=== PATIENT | female | born 1940 | race Caucasian/White ===

== ENCOUNTER → 2019-12-30 | Outpatient (CLI) | payer MEDICARE | END | disposition home or self-care (01) | LOC: LAB 15:39 → LAB SHORT 15:39 | DX: N89.8 Other specified noninflammatory disorders of vagina (principal) | CPT/HCPCS: 87070; 87205 ==

== ENCOUNTER → 2020-02-08 | Outpatient (CLI) | payer MEDICARE | END | disposition home or self-care (01) | LOC: LAB SHORT 17:22 → LAB 17:22 | DX: N89.8 Other specified noninflammatory disorders of vagina (principal) | CPT/HCPCS: 87070; 87205 ==

== ENCOUNTER 2020-12-30 01:55 | Day surgery (SDC) | payer MEDICARE ==
[~2020-12-30 01:55] MED LIST: ASCO500 PO; CENTRUM SILVER1 EAC2 PO; EUTHYROX75 MCG PO; FEROSUL325 M1 PO; LUTEIN6 MG; SIMV40 PO; ZEAXANTHIN100 GM
== END 2020-12-30 11:53 | disposition home or self-care (01) ==
LOC: ATC 01:55
DX: C91.10 Chronic lymphocytic leukemia of B-cell type not having achieved remission (principal); E03.9 Hypothyroidism, unspecified; E78.5 Hyperlipidemia, unspecified
CPT/HCPCS: 36430; 86850; 86860; 86870; 86880; 86900; 86901; 86922; J7050; P9016

== ENCOUNTER 2021-01-18 03:12 | Day surgery (SDC) | payer MEDICARE ==
--- NOTE | 2021-01-18 11:26 | NUR ---
PT AGREED THIS STUDENT CAN HELP CARE FOR HER
== END 2021-01-18 11:26 | disposition home or self-care (01) ==
LOC: ATC 03:12
DX: C91.10 Chronic lymphocytic leukemia of B-cell type not having achieved remission (principal); E03.9 Hypothyroidism, unspecified; E78.5 Hyperlipidemia, unspecified; D64.9 Anemia, unspecified; F17.200 Nicotine dependence, unspecified, uncomplicated
CPT/HCPCS: 36415; 36430; 86850; 86900; 86901; 86922; J7050; P9016

== ENCOUNTER 2021-02-14 08:59 | Inpatient (IN) | payer MEDICARE ==
[~2021-02-14] VITALS: Ht 154.9 cm; Wt 51.0 kg
[2021-02-14 09:29] LABS: Source, Urine Catheter
[2021-02-14 09:33] LABS: Bilirubin, Urine Neg (Neg); Blood, Urine 4+ (Neg); Glucose Qualitative, Urine Neg (Neg); Ketones, Urine 1+ (Neg); Leukocyte Esterase, Urine Neg (Neg); Nitrite, Urine Neg (Neg); Protein, Urine 3+ (Neg); Urobilinogen, Urine NORM (Normal)
[2021-02-14 09:50] LABS: Amorphous Mod (0-Heavy); Appearance, Urine Hazy (Clear); Bacteria Not Seen /hpf; Color, Urine Yellow (P-Yellow); Mucus Light (0-Heavy); Squamous Epithelial Cells Few /hpf (Few); White Blood Cells, Urine Not Seen /hpf (0-5)
[2021-02-14 09:58] LABS: Alanine Aminotransfer (ALT/SGP 35 U/L (12-78); Albumin, Blood 2.8 g/dL (3.4-5.0); Albumin/Globulin Ratio 0.7 (0.8-1.8); Alk Phos 194 U/L (50-136); Anion Gap 9 mmol/L (6-16); Aspartate Aminotrans (AST/SGOT 29 U/L (12-37); Bilirubin, Total 0.6 mg/dL (0.1-1.0); Blood Urea Nitrogen 22 mg/dL (8-24); Bun/Creatinine Ratio 29.1 (12.0-20.0); CO2, Blood 23 mmol/L (21-32); Calcium, Blood 8.9 mg/dL (8.5-10.1); Chloride, Blood 102 mmol/L (98-108); Creatinine, Blood 0.76 mg/dL (0.40-1.00); Glomerular Filtration Rate >60 (60-); Glucose, Blood 183 mg/dL (70-99); Potassium, Blood 3.7 mmol/L (3.5-5.5); Sodium, Blood 134 mmol/L (136-145); Total Protein, Blood 6.8 g/dL (6.4-8.2)
[2021-02-14 10:02] LABS: EOSINOPHILS ABSOLUTE AUTO 0.01 K/mm3 (0.00-0.68); EOSINOPHILS PERCENT AUTO 0 % (0-6); Hematocrit 18.9 % (33.0-51.0); Mean Corpuscular HGB 28.2 pg (26.0-34.0); Mean Corpuscular HGB Conc 26.5 g/dL (31.5-36.5); Mean Corpuscular Volume 107 fL (80-100); Mean Platelet Volume 11.1 fL (9.1-12.4); NRBC ABSOLUTE 0.04 K/mm3 (0.00-0.02); RDW Coefficient Variation 27.9 % (11.7-14.2); RDW Standard Deviation 51.2 fL (35.1-46.3); Red Blood Cell Count 1.77 M/mm3 (3.80-5.20)
[2021-02-14 10:03] LABS: BASOPHILS ABSOLUTE AUTO 0.01 K/mm3 (0.00-0.23); BASOPHILS PERCENT AUTO 0 % (0-2); IMMATURE GRAN ABSOLUTE AUTO 0.01 K/mm3 (0.00-0.10); IMMATURE GRAN PERCENT AUTO 0 % (0-1); LYMPHOCYTES ABSOLUTE AUTO 193.13 K/mm3 (0.84-5.20); LYMPHOCYTES PERCENT AUTO 97 % (21-46); MONOCYTES ABSOLUTE AUTO 4.91 K/mm3 (0.16-1.47); MONOCYTES PERCENT AUTO 3 % (4-13); NEUTROPHILS ABSOLUTE AUTO 0.86 K/mm3 (1.96-9.15); NEUTROPHILS PERCENT AUTO 0 % (41-73); Platelet Count 47 K/mm3 (150-400)
[2021-02-14 10:05] LABS: White Blood Cell Count 198.93 K/mm3 (4.00-11.30)
--- NOTE | 2021-02-14 12:39 | NUR ---
ED Palliative Care Consult Spoke with Dr Baltazar and discussed case. Pt here for transfusion. Pt has CLL and may benefit from discussion regarding goals of care. Pt resting on gurny upon arrival. Pt with her eyes closed for most of the visit and does not engage in conversation. Pt's spouse Abhay and Pt's son Sahil at bedside. Discussed plan of care and engaged in therapeutic discussion regarding the option for hospice. Educated on hospice philosophy and discussed considering goals, values, comfort, and quality. Answered question and offered therapeutic listening. Spouse reports Pt's health has significantly declined since August and has required routine transfusions. Son Sahil reports Pt and spouse lives in [place] for part of the year and here for part of the year. Continued therapeutic listening. Spouse and son would like to see how Pt responds to the transfusion and will consider options. Palliative Care will remain available.
--- NOTE | 2021-02-14 16:30 | NUR ---
Patient arrived via gurney and was afour person slide transfer. Her temp was 102.8. Placed her on bed benson after hooking up to monitor. She was awake enough to answer questions in a soft quiet voice and appropriate. She was pulling hwer clothe and attends off as she stated she was very hot. Placed on bed benson and got about 25 ml urine and talked her into temp reyes for better temp monitoring, she stated yes. VSS, See EMR. MAEW but weak. She was placed on 2L O2 via NC and shortly increased to 4L O2 via NC and sats >905.
--- NOTE | 2021-02-14 18:00 | NUR ---
We placed ice bags in arm pit and groin and temp currently 101.8. at bedside and CN gave update report to him. She is repositioning self for comfort. temp reyes patent and draining.
[2021-02-14 20:15] LABS: Source, Urine Catheter
[2021-02-14 20:18] LABS: Appearance, Urine Clear (Clear); Bilirubin, Urine Neg (Neg); Blood, Urine 4+ (Neg); Color, Urine Amber (P-Yellow); Glucose Qualitative, Urine Neg (Neg); Ketones, Urine Neg (Neg); Leukocyte Esterase, Urine Neg (Neg); Nitrite, Urine Neg (Neg); Protein, Urine 3+ (Neg); Urobilinogen, Urine NORM (Normal)
[2021-02-14 20:28] LABS: Amorphous Light (0-Heavy); Bacteria Mod /hpf; Red Blood Cells, Urine 0-2 /hpf (0-2); Squamous Epithelial Cells Not Seen /hpf (Few); White Blood Cells, Urine 0-2 /hpf (0-5)
--- NOTE | 2021-02-14 20:30 | NUR ---
ASSUMPTION OF CARE RECEIVED REPORT AT 192 FROM ALE SWEET, ASSUMED CARE OF PATIENT. PATIENT IN BED, EYES CLOSED, EASILY AWAKENS. STATED SHE FEELS TIRED AND COLD. TEMP 102.7, PO TYLENOL GIVEN WITH A SIP OF WATER. PATIENT TOLERATED PO INTAKE WELL. PATIENT IS A/O, TACHYCARDIC, PATENT QUILES, DENIES OTHER NEEDS AT THIS TIME. REVIEWED ORDERS, WILL TREAT PRESCRIBED.
--- NOTE | 2021-02-14 21:21 | NUR ---
TEMPERATURE NOTIFIED DR. BAUMAN OF PATIENT'S CURRENT TEMPERATURE AFTER TYLENOL WAS GIVEN. RECEIVED ORDERS FOR IBUPROFEN. WILL TREAT AND MONITOR.
[2021-02-14 21:47] LABS: SARS-Cov-2 (COVID-19) PCR, MMC NEGATIVE (NEGATIVE)
--- NOTE | 2021-02-14 23:55 | NUR ---
ASSUMED CARE OF PATIENT FROM MICKI HOUSTON. WENT IN TO WAKE PATIENT FOR MIDNIGHT MEDS, PT VERY DROWSY, COOPERATIVE, WEAK. ABLE TO SWALLOW MEDICATION WITH ENCOURAGEMENT TO FIND STRAW. PT PULLING ON CARDIAC LINES, REMINDED THAT THOSE NEED TO STAY, "OK". PT BACK TO SLEEP. QUILES DRAINING DARK SAM THICK CLOUDY RETURN.
[2021-02-15 03:31] LABS: EOSINOPHILS PERCENT AUTO 0 % (0-6); Hematocrit 22.9 % (33.0-51.0); Mean Corpuscular HGB 29.8 pg (26.0-34.0); Mean Corpuscular HGB Conc 30.6 g/dL (31.5-36.5); Mean Platelet Volume 10.8 fL (9.1-12.4); NRBC ABSOLUTE 0.03 K/mm3 (0.00-0.02); RDW Coefficient Variation 20.1 % (11.7-14.2); RDW Standard Deviation 44.1 fL (35.1-46.3); Red Blood Cell Count 2.35 M/mm3 (3.80-5.20)
[2021-02-15 03:36] LABS: BASOPHILS ABSOLUTE AUTO 0.01 K/mm3 (0.00-0.23); BASOPHILS PERCENT AUTO 0 % (0-2); IMMATURE GRAN PERCENT AUTO 0 % (0-1); LYMPHOCYTES ABSOLUTE AUTO 162.91 K/mm3 (0.84-5.20); LYMPHOCYTES PERCENT AUTO 98 % (21-46); MONOCYTES ABSOLUTE AUTO 1.79 K/mm3 (0.16-1.47); MONOCYTES PERCENT AUTO 1 % (4-13); Mean Corpuscular Volume 97 fL (80-100); NEUTROPHILS ABSOLUTE AUTO 1.01 K/mm3 (1.96-9.15); NEUTROPHILS PERCENT AUTO 1 % (41-73)
[2021-02-15 03:37] LABS: White Blood Cell Count 165.72 K/mm3 (4.00-11.30)
[2021-02-15 03:38] LABS: Platelet Count 31 K/mm3 (150-400)
[2021-02-15 03:43] LABS: International Normalized Ratio 1.4; Prothrombin Time Results 14.8 Sec (9.7-11.5)
[2021-02-15 03:52] LABS: Alanine Aminotransfer (ALT/SGP 33 U/L (12-78); Albumin, Blood 2.3 g/dL (3.4-5.0); Albumin/Globulin Ratio 0.6 (0.8-1.8); Alk Phos 137 U/L (50-136); Anion Gap 5 mmol/L (6-16); Aspartate Aminotrans (AST/SGOT 36 U/L (12-37); Bilirubin, Total 1.4 mg/dL (0.1-1.0); Blood Urea Nitrogen 30 mg/dL (8-24); Bun/Creatinine Ratio 32.9 (12.0-20.0); CO2, Blood 27 mmol/L (21-32); Calcium, Blood 8.6 mg/dL (8.5-10.1); Chloride, Blood 105 mmol/L (98-108); Creatinine, Blood 0.91 mg/dL (0.40-1.00); Glomerular Filtration Rate >60 (60-); Glucose, Blood 118 mg/dL (70-99); Magnesium, Blood 2.1 mg/dL (1.6-2.4); Potassium, Blood 3.7 mmol/L (3.5-5.5); Sodium, Blood 137 mmol/L (136-145); Total Protein, Blood 6.3 g/dL (6.4-8.2)
--- NOTE | 2021-02-15 04:04 | NUR ---
PT CONTINUES TO SLEEP, LAB RESULTS REPORTED TO . PT APPROPRIATE AND PLEASANT WHEN AWAKENED FOR CARE.
--- NOTE | 2021-02-15 06:48 | NUR ---
UPON WAKING PT THIS AM, SHE IS MORE ALERT, ORIENTED, CHEERFUL AND ENGAGING. SHE IS JOKING AND STATED THAT SHE FEELS MUCH BETTER. HER TEMPERATURE IS NOW NORMAL, HER BLOOD PRESSURE IS STABLIZING, FLUIDS CONTINUE @ 75ML/HR QUILES TO GRAVITY DRAINAGE. DENIES ANY COMPLAINTS AND STATED SHE IS LOOKING FORWARD TO EATING SOME "REAL" FOOD.
[2021-02-15 17:21] LABS: Hematocrit 26.2 % (33.0-51.0); Hemoglobin 8.2 g/dL (11.5-16.0); Mean Corpuscular HGB 29.6 pg (26.0-34.0); Mean Corpuscular HGB Conc 31.3 g/dL (31.5-36.5); Mean Corpuscular Volume 95 fL (80-100); Mean Platelet Volume 11.1 fL (9.1-12.4); NRBC ABSOLUTE 0.04 K/mm3 (0.00-0.02); RDW Coefficient Variation 18.3 % (11.7-14.2); RDW Standard Deviation 44.5 fL (35.1-46.3); Red Blood Cell Count 2.77 M/mm3 (3.80-5.20)
[2021-02-15 17:27] LABS: Platelet Count 29 K/mm3 (150-400); White Blood Cell Count 146.92 K/mm3 (4.00-11.30)
--- NOTE | 2021-02-15 18:00 | NUR ---
SHIFT SUMMARY PT A&Ox4; CALM AND COOPERATIVE WITH CARE. PT RESTING IN BED DURING SHIFT, PT REPOSITIONED SELF IN BED. PT DENIES PAIN, CHEST PAIN, NASUEA AND DIZZINESS T/O SHIFT. TMAX 101.8, CURRENTLY 100.4; MEDICATED PER EMAR, WILL CONTINUE TO MONITOR. PT RECEIVED 1 IRRATED PRBC, PT AND FAMILY EDCUATED ON HIGH RISK TRANSFUSION AND PT AGREEABLE TO RECEIVE UNIT; DR JENKINS NOTIFIED AND SIGNED FORM AND SENT TO BLOOD BANK, TOLERATED UNIT WELL. OTHER VSS. NO OTHER ACUTE CHANGES NOTED DURING SHIFT. WILL CONTINUE TO MONITOR UNITL REPORT GIVEN TO ONCOMING RN.
--- NOTE | 2021-02-16 02:15 | NUR ---
MID SHIFT PT AXO. THIS RN ROTATING MEDICATIONS TO CONTROLE FEVER. T MAX 101.8 CURRENTLY BUT DOWN TO 99.8 NOW. PT NOTED TO HAVE COARSE/WET LUNG SOUNDS. RECEIVING NS POST 1UPRBC INFUSION. DR JEFFERSON CALLED. NOTED THAT PT'S HAD SOFT BP'S AND IS SMALL. DECISION TO HOLD FLUIDS FOR NOW AND GIVE 20 IV LASIX. PT VOIDING LARGE AMOUNT OF URINE INTO QUILES. URINE REMAINS DELMA GOLD COLOR. PT STATES WET COUGH REMAINS BUT LUNG SOUNDS DO PRESENT WITH LESSENED COARSENESS AND CRACKLES.
[2021-02-16 03:46] LABS: EOSINOPHILS PERCENT AUTO 0 % (0-6); Hematocrit 22.7 % (33.0-51.0); Hemoglobin 7.2 g/dL (11.5-16.0); Mean Corpuscular HGB 29.9 pg (26.0-34.0); Mean Corpuscular HGB Conc 31.7 g/dL (31.5-36.5); Mean Corpuscular Volume 94 fL (80-100); Mean Platelet Volume 11.4 fL (9.1-12.4); RDW Coefficient Variation 18.7 % (11.7-14.2); RDW Standard Deviation 45.3 fL (35.1-46.3); Red Blood Cell Count 2.41 M/mm3 (3.80-5.20)
[2021-02-16 03:51] LABS: BASOPHILS ABSOLUTE AUTO 0.01 K/mm3 (0.00-0.23); BASOPHILS PERCENT AUTO 0 % (0-2); IMMATURE GRAN PERCENT AUTO 0 % (0-1); LYMPHOCYTES ABSOLUTE AUTO 116.93 K/mm3 (0.84-5.20); LYMPHOCYTES PERCENT AUTO 99 % (21-46); MONOCYTES ABSOLUTE AUTO 0.71 K/mm3 (0.16-1.47); MONOCYTES PERCENT AUTO 1 % (4-13); NEUTROPHILS ABSOLUTE AUTO 0.57 K/mm3 (1.96-9.15); NEUTROPHILS PERCENT AUTO 1 % (41-73)
[2021-02-16 03:55] LABS: White Blood Cell Count 118.22 K/mm3 (4.00-11.30)
[2021-02-16 03:56] LABS: Platelet Count 24 K/mm3 (150-400)
[2021-02-16 04:09] LABS: Alanine Aminotransfer (ALT/SGP 686 U/L (12-78); Albumin, Blood 1.8 g/dL (3.4-5.0); Albumin/Globulin Ratio 0.4 (0.8-1.8); Alk Phos 332 U/L (50-136); Anion Gap 7 mmol/L (6-16); Bilirubin, Total 3.1 mg/dL (0.1-1.0); Blood Urea Nitrogen 31 mg/dL (8-24); Bun/Creatinine Ratio 39.8 (12.0-20.0); CO2, Blood 25 mmol/L (21-32); Chloride, Blood 102 mmol/L (98-108); Creatinine, Blood 0.78 mg/dL (0.40-1.00); Glomerular Filtration Rate >60 (60-); Glucose, Blood 114 mg/dL (70-99); Magnesium, Blood 2.1 mg/dL (1.6-2.4); Phosphorus, Blood 2.8 mg/dL (2.5-4.9); Potassium, Blood 3.2 mmol/L (3.5-5.5); Sodium, Blood 134 mmol/L (136-145); Total Protein, Blood 5.8 g/dL (6.4-8.2)
[2021-02-16 04:16] LABS: Aspartate Aminotrans (AST/SGOT 1101 U/L (12-37); C-REACTIVE PROTEIN, EXT RANGE >19.000 mg/dL (0.000-0.300)
--- NOTE | 2021-02-16 05:39 | NUR ---
SHIFT SUMMARY NO ACUTE CHANGES THIS SHIFT. PT AXO. FEBRILE BUT W/ TYLENOL/IBUPROFEN, HAVE BEEN ABLE TO LOWER TEMPS <100. T MAX 101.8. PT ASYMPTOMATIC TO THIS. LUNG SOUNDS LESS WET/COARSE POST LASIX WITH LARGE OUTPUT VIA QUILES. REMAINS SR/ST. ON RA. PT REMAINS IN NEUTROPENIC PRECAUTIONS. BED ALARM ON. PT USING CALL LIGHT APPROPRIATELY.
[2021-02-16 10:06] LABS: Hematocrit 31.7 % (33.0-51.0); Hemoglobin 10.3 g/dL (11.5-16.0)
--- NOTE | 2021-02-16 10:29 | NUR ---
Assumed care of pt at 0700. Medical floor status w/o telemetry. Pt A&O x 4. Answers questions, follows commands, verbalizes needs. Pleasant and cooperative with care. Pt on 3 LPM NC. SpO2 90% or greater. Sibley catheter in place, draining clear, yellow urine. Bed in lowest position. Call light in reach. Pt denies need at this time.
--- NOTE | 2021-02-16 15:41 | NUR ---
Pt transferred to room 227. Telephone report given to Bee SWEET. Pt visited with spouse and neice this afternoon. At time of transfer, pt on 4 LPM NC. SpO2 90% or greater. Pt tachycardic and febrile. Tylenol given prior to transfer to maintain downward trend of temp. Sibley catheter in place draining kyle urine. Chart, medi cations, and belonging transferred with patient.
--- NOTE | 2021-02-16 16:15 | NUR ---
PT TRANSFERRED FROM ICU 1530, A&OX4, 4LNC/FEBRILE 100.1/PULSE 117, MICHEL PO, DENIES PAIN, DEEP BREATHING EDU & ENC, SITTING UP IN BED.
[2021-02-17 04:39] LABS: Hematocrit 24.5 % (33.0-51.0); Hemoglobin 8.1 g/dL (11.5-16.0); Mean Corpuscular HGB 30.6 pg (26.0-34.0); Mean Corpuscular HGB Conc 33.1 g/dL (31.5-36.5); Mean Corpuscular Volume 93 fL (80-100); Mean Platelet Volume 12.1 fL (9.1-12.4); RDW Coefficient Variation 18.4 % (11.7-14.2); RDW Standard Deviation 45.8 fL (35.1-46.3); Red Blood Cell Count 2.65 M/mm3 (3.80-5.20)
--- NOTE | 2021-02-17 04:42 | NUR ---
SHIFT SUMMARY MAX ORAL TEMPERATURE THIS SHIFT OF 100.9. FEVER RESOLVED WITH TYLENOL PER ORDERS. PT STILL WITH NONPRODUCTIVE COUGH. ON 7L O2 VIA OXYMIZER PLACED BY RT. LUNGS COARSE IN THE BASES AND PT DOES GET SOB WITH EXERTION. 1 ASSIST WHEN OOB. QUILES WITH DARK SAM URINE. PT HAS BEEN PLEASANTLY CONFUSED THIS SHIFT. BED ALARM ON FOR SAFETY. CALL LIGHT WITHIN REACH.
[2021-02-17 04:44] LABS: Platelet Count 21 K/mm3 (150-400); White Blood Cell Count 106.76 K/mm3 (4.00-11.30)
[2021-02-17 05:19] LABS: Alanine Aminotransfer (ALT/SGP 521 U/L (12-78); Albumin, Blood 1.7 g/dL (3.4-5.0); Albumin/Globulin Ratio 0.4 (0.8-1.8); Alk Phos 410 U/L (50-136); Anion Gap 8 mmol/L (6-16); Aspartate Aminotrans (AST/SGOT 343 U/L (12-37); Bilirubin, Total 3.2 mg/dL (0.1-1.0); Blood Urea Nitrogen 28 mg/dL (8-24); Bun/Creatinine Ratio 47.6 (12.0-20.0); CO2, Blood 25 mmol/L (21-32); Calcium, Blood 8.5 mg/dL (8.5-10.1); Chloride, Blood 100 mmol/L (98-108); Creatinine, Blood 0.59 mg/dL (0.40-1.00); Globulin, Blood 4.7 g/dL (2.2-4.0); Glomerular Filtration Rate >60 (60-); Glucose, Blood 120 mg/dL (70-99); Potassium, Blood 3.4 mmol/L (3.5-5.5); Sodium, Blood 133 mmol/L (136-145); Total Protein, Blood 6.4 g/dL (6.4-8.2)
[2021-02-17 06:07] LABS: BASOPHILS PERCENT MAN 0 % (0-2); C-REACTIVE PROTEIN, EXT RANGE >19.000 mg/dL (0.000-0.300); EOSINOPHILS PERCENT MAN 0 % (0-6); LYMPHOCYTES ABSOLUTE MAN 105.69 K/mm3 (0.84-5.20); LYMPHOCYTES PERCENT MAN 99 % (21-46); MONOCYTES ABSOLUTE MAN 1.06 K/mm3 (0.16-1.47); MONOCYTES PERCENT MAN 1 % (4-13); TOTAL CELLS COUNTED 100
[2021-02-17 06:09] LABS: SEG NEUTROPHILS PERCENT MAN 0 % (41-73)
[2021-02-17 07:09] LABS: IMMUNOGLOBULIN A, QN, SERUM 7 mg/dL (64-422); IMMUNOGLOBULIN G, QN, SERUM 201 mg/dL (586-1602); IMMUNOGLOBULIN M, QN, SERUM 19 mg/dL (26-217)
--- NOTE | 2021-02-17 08:26 | NUR ---
DECLINE RESP STATUS PT NOTED BY HATCH BOSS TO HAVE RESP RATE OF 32. O2 SATS AT 86% ON 7L OXYMIZER. ENCOURAGED TO DEEP BREATH AND SATS IMPROVED BRIEFLY TO 89-90%. CALLED RT. RT INCREASED O2 TO 15L OXYMIZER TO KEEPS SATS 89-90%. DR JONI LEE SPOKE WITH PATIENT AND PLAN IS TO START CANCER MED TO SEE IF IT HELPS STABILIZE PATIENT. DR JONI LEE SPOKE WITH PATIENT'S FAMILY ON THE PHONE. FAMILY TO COME IN TO SEE PATIENT THIS AM.
--- NOTE | 2021-02-17 09:05 | NUR ---
Spoke with Pt's primary RN Ramin and discussed case. Pt had a change in condition overnight and is now requiring 15 L O2 via oximyzer. Dr Fisher was in to see Pt and has called family with plan. Pt resting in bed upon arrival. Pt appears lethargic, moderately dyspneic, with a weak non productive cough. Pt is A&OX2. When asked the name of facility she is in she states [facility]", when aske reason for hospital stay Pt states "to receive cancer treatment", Pt not able to remember initial reason for coming to the ED, Pt also unable to verbalize current year. Pt re-orientated to place, reason for stay, and current year. Ended visit to allow Pt to rest. Call into Dr Fisher for continuity of care. Await return phone call. Palliative Care will F/U when family arrives.
--- NOTE | 2021-02-17 09:49 | NUR ---
F/U visit this AM. Pt resting in bed with spouse Abhay, and niece Linh (MPOA). Engaged in therapeutic discussion regarding plan of care. Family reports understanding of plan to begin cancer treatment but preparing for the potential of treatment not being beneficial. Continued therapeutic listening and answered questions. Family express appreciation of visit. Spoke with Dr Espinoza and discussed case. Placed order for Pt to transfer to ICU per V/O from Dr Espinoza. Spoke with Primary RN Ramin and discussed case. Palliative Care will remain available.
--- NOTE | 2021-02-17 10:28 | NUR ---
TRANSFER TO ICU PATIENT WAS SEEN BY PALLIATIVE CARE RN WHO SPOKE WITH PATIENT AND FAMILY. PALLIATIVE CARE RN CONTACTED DR JENKINS TO SEE IF HE WOULD LIKE TO TRANSFER PATIENT TO HIGHER LEVEL OF CARE DUE TO DECLINING RESP STATUS. ORDER PLACED TO TRANSFER PATIENT TO ICU. TRANSPORTED PATIENT IN BED TO ICU AND GAVE BEDSIDE REPORT ON DECLINING RESP STATUS, CURRENT NEED FOR O2 SUPP, RECENT VITALS OF 103.0 TEMP, RR 32, HR TACHY AT 140S, AND SPO2 89-90% ON 15L OXYMIZER. PATIENT DOES NOT HAVE PATENT IV. DUE FOR ABX THIS AM AND RITUXIMAB ABOUT 1200. BREAKFAST AND AM PO MEDS HELD DUE TO SWALLOW CONCERN SECOND TO WEAKNESS AND DECREASED LOC.
--- NOTE | 2021-02-17 12:52 | NUR ---
Assumed care of pt upon arrival to ICU 16 at 1010 from surgical floor. Bedside report received from Ramin SWEET. Pt arrived with 15 LPM oxymizer. SpO2 88%. Call placed to Dr Espinoza to discuss respiratory status. Orders received for IV lasix and BiPAP. Pt given PO tylenol and ibuprofen due to fever of 104.4. Tolerated pills well without signs of aspiration. Pt placed on BiPAP 10/5 and 30%. SpO2 90% or greater. Tachycardic, rate 140s, narrow QRS. Pt's spouse and neice at bedside.
--- NOTE | 2021-02-17 14:15 | NUR ---
Call placed to Dr Espinoza to discuss pt's hypotension. Orders given for 500 mL NS bolus. Chemo nurse, Nandini, notified. Chemo rate titrated down by chemo nurse.
--- NOTE | 2021-02-17 19:45 | NUR ---
ASSESSMENT/ASSUMED CARE PT SITTING UP IN BED FINISHING DINNER. TEMP 99.5, MED WITH TYLENOL. LUNGS CLEAR BUT DECREASED IN THE BASES ON 10 LITERS VIA OXMIZER. RESP EVEN AND NONLABORED. DENIES SOB. OCC NONPRODUCTIVE COUGH NOTED. HEART RATE IRREGULAR IN THE 100'S. BP STABLE ON 2 MCQ/MIN LEVOPHED. SKIN COOL. MULTIPLE BRUISES NOTED TO EXT. IV PICC LINE TO RIGHT UPPER ARM WITH NS AT 125 ML/HR AND LEVOPHED. QUILES CATH PATENT AND DRAINING DARK YELLOW/SAM URINE. PT MOVING AND TURNING SELF IN BED.
--- NOTE | 2021-02-17 19:57 | NUR ---
SUMMARY Pt on 2 mcg/min levophed through PICC line as BP did not stay stable on completion of 1 L fluid bolus. BP stable at this time. SR per monitor. Pt afebrile. Pt taken off BiPAP at 1800 and placed on 5 LPM oxymizer. SpO2 90% or greater. Respirations even and unlabored. Pt eating dinner at this time. Bed in lowest position. Call light in reach. Report given to Kae SWEET.
--- NOTE | 2021-02-17 20:57 | NUR ---
TEMP PT MED WITH IBUPROFEN FOR TEMP 99.9.
[2021-02-18 03:42] LABS: EOSINOPHILS PERCENT AUTO 0 % (0-6); Hematocrit 21.7 % (33.0-51.0); Hemoglobin 6.9 g/dL (11.5-16.0); Mean Corpuscular HGB 30.1 pg (26.0-34.0); Mean Corpuscular HGB Conc 31.8 g/dL (31.5-36.5); Mean Corpuscular Volume 95 fL (80-100); Mean Platelet Volume 11.8 fL (9.1-12.4); RDW Coefficient Variation 19.3 % (11.7-14.2); RDW Standard Deviation 49.4 fL (35.1-46.3); Red Blood Cell Count 2.29 M/mm3 (3.80-5.20)
[2021-02-18 03:46] LABS: BASOPHILS ABSOLUTE AUTO 0.04 K/mm3 (0.00-0.23); BASOPHILS PERCENT AUTO 0 % (0-2); IMMATURE GRAN PERCENT AUTO 0 % (0-1); LYMPHOCYTES ABSOLUTE AUTO 90.29 K/mm3 (0.84-5.20); LYMPHOCYTES PERCENT AUTO 99 % (21-46); MONOCYTES ABSOLUTE AUTO 0.84 K/mm3 (0.16-1.47); MONOCYTES PERCENT AUTO 1 % (4-13); NEUTROPHILS ABSOLUTE AUTO 0.27 K/mm3 (1.96-9.15); NEUTROPHILS PERCENT AUTO 0 % (41-73); Platelet Count 20 K/mm3 (150-400); White Blood Cell Count 91.44 K/mm3 (4.00-11.30)
[2021-02-18 04:01] LABS: Alanine Aminotransfer (ALT/SGP 334 U/L (12-78); Albumin, Blood 1.5 g/dL (3.4-5.0); Albumin/Globulin Ratio 0.3 (0.8-1.8); Alk Phos 315 U/L (50-136); Anion Gap 7 mmol/L (6-16); Aspartate Aminotrans (AST/SGOT 139 U/L (12-37); Bilirubin, Total 2.4 mg/dL (0.1-1.0); Blood Urea Nitrogen 38 mg/dL (8-24); Bun/Creatinine Ratio 62.2 (12.0-20.0); CO2, Blood 24 mmol/L (21-32); Calcium, Blood 7.7 mg/dL (8.5-10.1); Chloride, Blood 105 mmol/L (98-108); Creatinine, Blood 0.61 mg/dL (0.40-1.00); Globulin, Blood 4.3 g/dL (2.2-4.0); Glomerular Filtration Rate >60 (60-); Glucose, Blood 234 mg/dL (70-99); Lactate Dehydrogenase (Ld),Bld 276 U/L (100-240); Potassium, Blood 3.9 mmol/L (3.5-5.5); Sodium, Blood 136 mmol/L (136-145); Total Protein, Blood 5.8 g/dL (6.4-8.2); Uric Acid, Blood 8.8 mg/dL (2.6-6.0)
--- NOTE | 2021-02-18 05:55 | NUR ---
SHIFT SUMMARY PT RESTING QUIETLY AT THIS TIME. MED WITH TYLENOL AND IBUPROFEN DURING THE NIGHT FOR FEVER WITH GOOD RESULTS. TEMP AT THIS TIME 98.6. PT REFUSED BIPAP STATED,"I DON'T LIKE THAT THING". O2 TITRATED DOWN FROM 10 LITERS VIA OXMIZER TO 6 LITERS OXMIZER. PT WITH NONPRODUCTIVE COUGH. DENIES SOB. HEART RATE DOWN TO 80'S WHEN SLEEPING BUT BACK UP TO 100'S WHEN AWAKE. LEVOPHED TITRATED UP TO 8 MCQ/MIN TO KEEP MAP GREATER THAN 65. PT TURNING AND MOVING SELF IN BED. EGG CRATE APPLIED FOR COMFORT. PICC LINE TO RIGHT UPPER ARM WITH NS AT 125 ML/HR AND LEVOPHED INFUSING. PT STATES,"I GREW UP ON A FARM AND WOULD NOT DO THIS TO ANIMAL WHY DOES MY FAMILY THINK I WANT THIS DONE TO ME. THEY NEED TO RESPECT MY WISHES AND LET ME BE DONE". WILL HAVE PALLIATIVE CARE TALK WITH PT AND FAMILY REGARDING PT WISHES. REPORT TO ON COMING NURSE
--- NOTE | 2021-02-18 06:48 | NUR ---
PT STATES,"I PRAY EACH NIGHT FOR MY FAMILY AND THAT I DON'T MAKE IT THROUGH THE NIGHT. I WANT MY WISHES DONE NOT WHAT MY FAMILY THINKS IT SHOULD BE. I'M TIRED AND DON'T WANT TO DO THIS ANYMORE". PT TALKED TO SHASHI GUERRA AND IS PROGRESSING TO COMFORT CARE WHEN HER FAMILY AND THE DOCOTOR COME IN TODAY.
--- NOTE | 2021-02-18 08:36 | NUR ---
Assumed care of pt at 0700. Bedside report received from Kae SWEET. Pt A&O x 4. Answers questions. Follows commands. Verbalizes needs. Pleasant and cooperative with care. Pt on 6 LPM oxymizer. SpO2 90% or greater. Lungs have coarse crackles in bilateral bases but otherwise clear. Levophed at 8 mcg/min. NS at 125 mL/hr. ST per monitor. BP stable. Sibley catheter draining clear, kyle urine. Bed in lowest positon. Call light in reach. Pt denies need at this time.
--- NOTE | 2021-02-18 09:39 | NUR ---
Spoke with Primary RN Argelia and discussed case. NOC shift reports Pt was reporting that she did not want to continue with treatment and would prefer to focus on comfort and quality of life. Pt currently requiring pressors. Pt resting in bed upon arrival. Pt's spouse Abhay and Pt's niece Linh are at bedside. Pt is more alert today and states "I want to go home". Pt confirms her statements to NOC shift nurse and states she does not want to continue treating her CLL. Discussed hospice as an option and educated on hospice philosophy. Dr Fisher arrives and discusses improvements and recommendations. Therapeutic listening offered and questions answered by Dr Fisher. Pt and family decide to give it through the weekend before making any final decision regarding hospice. Remained in Pt's room after Dr Fisher leaves for continued therapeutic listening. Pt and family express appreciation of visit. Palliative Care will remain available.
[2021-02-18 10:42] LABS: Magnesium, Blood 2.2 mg/dL (1.6-2.4); Phosphorus, Blood 2.6 mg/dL (2.5-4.9)
--- NOTE | 2021-02-18 13:15 | NUR ---
Pt febrile and states "I feel like I'm burning up". Call placed to Dr Espinoza. Provider states fever is likely due to CLL and is ordering dose of tylenol to be given now. No need to stop transfusion. Pt requests ice packs. Ice packs provided. Pt requests "Can I please be put in a bed of ice". Pt provided with cooling blanket. She states satisfaction with this.
--- NOTE | 2021-02-18 18:07 | NUR ---
SUMMARY Pt's family has departed for the evening. Since family departing, pt is now sad and upset that she is following through with treatment. Reminded that earlier she was agreeable with full treatment throughout weekend and pt verbalizes that this is still the plan. Pt on 9 LPM oxymizer. SpO2 90%. Plan to put pt on BiPAP, however she is currently nauseous. Zofran given. Will continue to closely reassess. ST per monitor, rate 115-125. levophed off. BP stable. Good urine output from reyes. Temp 99.0 at this time. Pt has cooling blanket in place, per personal preference with temperature adjusted as pt desires. Will continue to closely monitor until care handoff and bedside report with oncoming RN.
--- NOTE | 2021-02-18 18:45 | NUR ---
This RN entered room for 1800 meds and pt had panicked expression on face. This RN asked pt if she was okay and she shook her head to indicate "No". This RN asked if the pt's main concern was her breathing, and she nodded head "Yes". Pt placed on BiPAP. No longer nauseous. Lungs crackled t/o. Call placed to Dr Parker to update. Orders given for lasix IV. After pt on BiPAP, this RN asked if pt was feeling better, she nodded her head to indicate "yes".
--- NOTE | 2021-02-18 19:40 | NUR ---
ASSESSMENT/ASSUMED CARE PT AWAKE, QUIET. FOLLOWING INSTRUCTIONS. LETHARGIC. STATES,"I'M JUST REALLY TIRED TONIGHT". LUNGS CLEAR WITH CRACKLES AND DECREASED IN THE BASES. PT ON BIPAP 05/30 85%. RESP EVEN AND NONLABORED. NO COUGHING NOTED AT THIS TIME.PT REPORTS IMPROVED BREATHING WITH BIPAP ON. HEART RATE TACHY 100-120'S SINUS. BP STABLE AT THIS TIME OFF LEVOPHED. SKIN COOL AND DRY. PICC LINE TO RIGHT UPPER ARM DRSG INTACT. NS AT 10 ML/HR. QUILES CATH PATENT DRAINING YELLOW/SAM URINE. PT REPOSITIONING SELF IN BED. BACK TO SLEEP QUICKLY WHEN UNDISTURBED.
--- NOTE | 2021-02-18 21:50 | NUR ---
TEMP PT AWAKE. BIPAP REMOVE AND PT PLACED ON 9 LITERS O2 VIA OXMIZER. NONPRODUCTIVE MOIST COUGH NOTED. TEMP UP TO 99.1, MED WITH TYLENOL AND IBUPROFEN. BLANKET REMOVED AND PT REPOSITIONED. INSTRUCTED PT IN SELF SUCTIONING. PT UNABLE TO COUGH UP SPUTUM.
[2021-02-19 04:28] LABS: BASOPHILS ABSOLUTE AUTO 0.06 K/mm3 (0.00-0.23); BASOPHILS PERCENT AUTO 0 % (0-2); EOSINOPHILS PERCENT AUTO 0 % (0-6); Hematocrit 19.2 % (33.0-51.0); Hemoglobin 6.4 g/dL (11.5-16.0); Mean Corpuscular HGB 30.3 pg (26.0-34.0); Mean Corpuscular HGB Conc 33.3 g/dL (31.5-36.5); Mean Corpuscular Volume 91 fL (80-100); Mean Platelet Volume 11.7 fL (9.1-12.4); RDW Coefficient Variation 18.2 % (11.7-14.2); RDW Standard Deviation 51.8 fL (35.1-46.3); Red Blood Cell Count 2.11 M/mm3 (3.80-5.20); White Blood Cell Count 37.91 K/mm3 (4.00-11.30)
[2021-02-19 04:37] LABS: IMMATURE GRAN ABSOLUTE AUTO 0.01 K/mm3 (0.00-0.10); IMMATURE GRAN PERCENT AUTO 0 % (0-1); LYMPHOCYTES ABSOLUTE AUTO 37.24 K/mm3 (0.84-5.20); LYMPHOCYTES PERCENT AUTO 98 % (21-46); MONOCYTES ABSOLUTE AUTO 0.52 K/mm3 (0.16-1.47); MONOCYTES PERCENT AUTO 1 % (4-13); NEUTROPHILS ABSOLUTE AUTO 0.08 K/mm3 (1.96-9.15); NEUTROPHILS PERCENT AUTO 0 % (41-73); Platelet Count 6 K/mm3 (150-400)
[2021-02-19 04:53] LABS: Alanine Aminotransfer (ALT/SGP 213 U/L (12-78); Albumin, Blood 2.1 g/dL (3.4-5.0); Albumin/Globulin Ratio 0.6 (0.8-1.8); Alk Phos 243 U/L (50-136); Anion Gap 6 mmol/L (6-16); Aspartate Aminotrans (AST/SGOT 76 U/L (12-37); Bilirubin, Total 2.5 mg/dL (0.1-1.0); Blood Urea Nitrogen 34 mg/dL (8-24); Bun/Creatinine Ratio 57.3 (12.0-20.0); CO2, Blood 27 mmol/L (21-32); Calcium, Blood 7.5 mg/dL (8.5-10.1); Chloride, Blood 104 mmol/L (98-108); Creatinine, Blood 0.59 mg/dL (0.40-1.00); Globulin, Blood 3.5 g/dL (2.2-4.0); Glomerular Filtration Rate >60 (60-); Glucose, Blood 113 mg/dL (70-99); Magnesium, Blood 2.2 mg/dL (1.6-2.4); Phosphorus, Blood 3.1 mg/dL (2.5-4.9); Potassium, Blood 3.6 mmol/L (3.5-5.5); Sodium, Blood 137 mmol/L (136-145); Total Protein, Blood 5.6 g/dL (6.4-8.2)
--- NOTE | 2021-02-19 05:20 | NUR ---
SHIFT SUMMARY CALL TO DR CALVIN REGARDING PLT 6 AND H&H 6.4/19.2. HE REQUESTED I NOTIFY DR LEE. CALL TO DR LEE ANSWERING SERVICE AT 0510. AWAITING RESPONSE. TEMP UP TO 99.3 MED WITH TYLENOL 650MG. PT WTH BIPAP ON 05/30 AT 50%. PT WITH INCREASED WEAKNESS FROM YESTERDAY. USING THE BIPAP THROUGHOUT THE NIGHT STATES,"I JUST DON'T FEEL LIKE I'M GETTING ENOUGH AIR WITHOUT THE MASK". PT WITH NONPRODUCTIVE COUGH MED WITH TESSLON PEARLS ONCE DURING THE NIGHT. HEART CONT TO BE TACHY 100-120'S. BP STABLE OFF LEVOPHED. PT RESTING QUIETLY AT THIS TIME WITH BIPAP ON. REPORT TO ON COMING NURSE.
--- NOTE | 2021-02-19 05:25 | NUR ---
CALL TO SECOND CALL TO DR LEE ANSWERING SERVICE.
--- NOTE | 2021-02-19 05:50 | NUR ---
TRANSFUSION CALL RECEIVED FROM DR LEE, NOTIFIED PLT CRITICAL AT 6 AND H&H 6.4/19.2. RECEIVED ORDER FOR PLT AND PRBC.
--- NOTE | 2021-02-19 07:27 | NUR ---
Assumed care for this patient. She is resting in bed with eyes closed and Bipap on. Per report Dr Fisher has been notified and signed off on the unit of blood that is ordered now. Blood slip was sent to the blood bank.
--- NOTE | 2021-02-19 08:21 | NUR ---
dR LEE IS AT THE BEDSIDE NOW AND CONFIRMED THAT WE WILL INFUSE TWO TOTAL UNITS OF BLOOD TODAY. OF NOW THE PTS VSS AND HER LUNGS REMAIN CLEAR IN THE UPPER LOBES WITH FINE CRACKLES IN THE BASES WHICH IS UNCHANGED FROM BEFORE THE START OF THE BLOOD. DR LEE IS UPDATING THE FAMILY NOW VIA PHONE.
--- NOTE | 2021-02-19 10:02 | NUR ---
Pt continues to rest in bed visiting with family at the bedside. Blood continues to infuse with no adverse reaction observed and VSS. Per palliative care, Pt wishes to continue with today's treatment as ordered and then if no changes tomorrow transition to comfort care at that time. The pt is able to make her needs known and verbalizes her wishes.
--- NOTE | 2021-02-19 10:41 | NUR ---
Pt resting in bed upon arrival. Engaged in therapeutic listening as Pt expresses her wishes to stop everything. Pt states "I want to " and "I want to stop the transfusions, I want to stop everything". Continued therapeutic listening and discussed orginal plan of waiting until Saturday before making a decision. Pt states "Maybe the treatment takes and maybe it does'nt, but I don't want to wait to find out". Continued therapeutic listening. Family arrives and this RN stepped out to allow conversation to take place. Called and spoke with Dr Fisher and relayed Pt's wishes. Stepped back into Pt's room with family reporting Pt has agreed to wait until tomorrow before making final decision. It appears Pt maybe influenced by family's wishes as evidenced by Pt expressing her wishes when she is by herself and waxing and waining when family is present. Pt and family express appreciation of visit. Spoke with Primary RN Cesar and discussed case. Palliative Care will remain available.
--- NOTE | 2021-02-19 14:21 | NUR ---
Some of the pt's blood vital heart rates were charted incorrectly but then corrected as reflected in the chart. the charger tester is aware.
--- NOTE | 2021-02-19 15:43 | NUR ---
Pt has been assigned a room in PCu 9. The Pt and the family have been notified and are agreeable. Awaiting to give report to receiving RN.
--- NOTE | 2021-02-19 16:18 | NUR ---
Shift Summary Pt has been a/o x 4 with no c/o pain but is fatigued and weak. She has been agreeable to her care and met with palliative care this morning. Pt received 2 units of RBCs with no adverse reaction. She did have a low grade temp which the dr was aware of and was given PO antipyretics for and they were effective. Family was at the bedside for a few hours and they seem to have a therapuetic relationship. PICC line flushes well. Sibley is patent. This nurse assisted the pt with a bed bath and linen change. Dr changed her status to PCU and report has been called. Pt remains on the Bipap as she reports that she is more comfortable with her breathing with it on. Family is aware of her transfer to PCU.
--- NOTE | 2021-02-19 16:18 | NUR ---
Report given to FIRST OFFICER AND FLIGHT INSTRUCTORMICKI Munguia.
[2021-02-19 17:46] LABS: Hematocrit 25.1 % (33.0-51.0); Hemoglobin 8.7 g/dL (11.5-16.0); Mean Corpuscular HGB 29.7 pg (26.0-34.0); Mean Corpuscular HGB Conc 34.7 g/dL (31.5-36.5); Mean Platelet Volume 10.7 fL (9.1-12.4); RDW Coefficient Variation 16.4 % (11.7-14.2); RDW Standard Deviation 45.9 fL (35.1-46.3); Red Blood Cell Count 2.93 M/mm3 (3.80-5.20); White Blood Cell Count 30.71 K/mm3 (4.00-11.30)
[2021-02-19 17:51] LABS: Mean Corpuscular Volume 86 fL (80-100)
[2021-02-19 17:54] LABS: Platelet Count 22 K/mm3 (150-400)
[2021-02-19 18:07] LABS: Vancomycin, Random 6.5 ug/mL
--- NOTE | 2021-02-19 18:19 | NUR ---
TRANSFER NOTE & SHIFT SUMMARY PT ARRIVED TO UNIT @ APPROX 1630, PT WAS SLID TO PCU BED. ARRIVED ON BiPAP, PT PERFERS BiPAP OR ELSE SHE STATES SHE CANNOT BREATHE. O2 SATS DROP INTO THE 70'S W/O BiPAP. FINE CRACKLES @ BASES. A&O, ABLE TO MAKE NEEDS KNOWN. PATENT DENIES ANY DISTRESS AT THIS TIME. QUILES PATENT AND DRAINING CLEAR YELLOW URINE. cL PLATELET COUNT OF 22, THIS IS INCREASED FROM 6 AFTER 2 UNITS OF PRBC ADMINISTERED IN ICU. PT IS POTENTIALLY BEING PLACED ON COMFORT CARE TOMORROW DEPENDING ON WHETHER OR NOT SHE PROGRESSES. FAMILY IS CURRENTLY AT BEDSIDE. PT AND FAMILY STATE TO NURSE THAT THEY DO NOT WANT PT TO RECIEVE COVID VACCINE OR THORANCENTESIS THAT WAS DISCUSSED PREVIOUSLY. PICC IN [facility] [[email or web address]] WORKS WELL. CALL LIGHT IS WITHIN REACH.
--- NOTE | 2021-02-19 22:28 | NUR ---
CALLED DR BAUMAN REGARDING PT VERY PAINFUL. ORDERS OF FENT 25-50 MCGS Q4HRS.
[2021-02-20 03:47] LABS: BASOPHILS ABSOLUTE AUTO 0.04 K/mm3 (0.00-0.23); BASOPHILS PERCENT AUTO 0 % (0-2); EOSINOPHILS PERCENT AUTO 0 % (0-6); Hematocrit 26.7 % (33.0-51.0); Hemoglobin 9.4 g/dL (11.5-16.0); Mean Corpuscular HGB 30.1 pg (26.0-34.0); Mean Corpuscular HGB Conc 35.2 g/dL (31.5-36.5); Mean Corpuscular Volume 86 fL (80-100); Mean Platelet Volume 9.5 fL (9.1-12.4); RDW Coefficient Variation 17.3 % (11.7-14.2); RDW Standard Deviation 47.2 fL (35.1-46.3); Red Blood Cell Count 3.12 M/mm3 (3.80-5.20); White Blood Cell Count 28.04 K/mm3 (4.00-11.30)
[2021-02-20 03:53] LABS: IMMATURE GRAN PERCENT AUTO 0 % (0-1); LYMPHOCYTES ABSOLUTE AUTO 27.63 K/mm3 (0.84-5.20); LYMPHOCYTES PERCENT AUTO 99 % (21-46); MONOCYTES ABSOLUTE AUTO 0.17 K/mm3 (0.16-1.47); MONOCYTES PERCENT AUTO 1 % (4-13); NEUTROPHILS PERCENT AUTO 1 % (41-73); Platelet Count 16 K/mm3 (150-400)
[2021-02-20 04:13] LABS: Alanine Aminotransfer (ALT/SGP 232 U/L (12-78); Albumin, Blood 1.8 g/dL (3.4-5.0); Albumin/Globulin Ratio 0.5 (0.8-1.8); Alk Phos 367 U/L (50-136); Anion Gap 7 mmol/L (6-16); Aspartate Aminotrans (AST/SGOT 140 U/L (12-37); Bilirubin, Total 2.8 mg/dL (0.1-1.0); Blood Urea Nitrogen 30 mg/dL (8-24); Bun/Creatinine Ratio 59.9 (12.0-20.0); CO2, Blood 25 mmol/L (21-32); Calcium, Blood 7.7 mg/dL (8.5-10.1); Chloride, Blood 102 mmol/L (98-108); Globulin, Blood 3.9 g/dL (2.2-4.0); Glomerular Filtration Rate >60 (60-); Glucose, Blood 126 mg/dL (70-99); Potassium, Blood 3.4 mmol/L (3.5-5.5); Sodium, Blood 134 mmol/L (136-145); Total Protein, Blood 5.7 g/dL (6.4-8.2)
--- NOTE | 2021-02-20 04:54 | NUR ---
CALLED DR. MORA REGARDING PT AND FAMILY WANTING TO MOVE FORWARD WITH COMFORT CARE. ORDER TO INCREASE PAIN MEDICATION FENT PRN Q4 IF NEEDED. WILL PASS ON TO DAY SHIFT
--- NOTE | 2021-02-20 04:57 | NUR ---
SHIFT SUMMARY PT IS ALERT AND ORIENTED. PT IS ABLE TO CALL FOR HELP AND CALL LIGHT IS WITHIN REACH. AROUND 0230 PT HAD A HEART RATE INCREASE OF ABOVE 200. PT DENIED CHEST PAIN OR TIGHTNESS. PT WAS ON BIPAP WITH 60%FIO2 AND SATS OF 90%. BP WAS STABLE. WE WERE ABLE TO STABALIZE HEART RATE. PT ASKED FOR FAMILY TO COME VISIT HER. SHE HAD NURSE VERIFY THAT SHE WAS DNR AND THAT WE UNDERSTOOD HER WISHES. SHASHI GUERRA CAME TO NURSES STATION TO STATE THAT FAMLY AND PT CAME TO THE AGREEMENT THAT SHE WOULD LIKE TO BE COMFORT CARE. FAMILY IN ROOM AT THIS TIME.
--- NOTE | 2021-02-20 06:04 | NUR ---
PT ON 15L OXYMIZER MAINTAINING BETWEEN 88-90% O2
--- NOTE | 2021-02-20 06:34 | NUR ---
PT IS NO LONGER TOLERATING TO BE ON OXYMIZER DUE TO AIR HUNGER. PT IS NOW ON BIPAP.
--- NOTE | 2021-02-20 10:16 | NUR ---
[facility] COMFORT CARE VISIT AND CASE CONFERENCE with Pt/family, RN, charger operator, and GAVIN. t/c received that pt/family have been requesting comfort care since yesterday gabriella and t/o noc. Pt is requiring bipap support and not tolerating or liking the bipap but air hunger too great to d/c without support. Report called to and comfort care orders received and entered. Met with pt and family to review options and clarify comfort care request. They would like IV/PO rx & tx d/c'd, except for medications that will contribute to Titi's comfort. Pt confirms this is her wish. Pt with bipap on and showing nonverbal indicators of anxiety and discomfort currently. We discussed medications for comfort and SE. Pt and family instructed our goal for today would be to manage pt's s/s for comfort. They ask that we work on d/c plan for home today. I am concerned that we will not be able to support pt's resp status adequately during a medical transport to home. She will have limited O2 delivery at home compared to here. This was discussed with family. Pt and family would like us to try. They are receptive to any of three hospice agencies available, requesting which ever one can arrange services and equipment first. Pt lives in [place]. Comfort care orders discussed with RN, food tester. Pt/family request for d/c home communicated with and Marina ALONSO. They are rounding soon and will discuss further. hospice consultant ordered comfort cart.
--- NOTE | 2021-02-20 17:42 | NUR ---
PT TRANSFERRED TO COMFORT CARE AND FROM BIPAP TO OXYMISER 15L AT 1112; PT GIVEN PAIN RX SEVERAL TIMES PER MAR; FAMILY MEMBERS AT BEDSIDE; PT DENIES ADDITIONAL CONCERNS AT THIS TIME; PT GIVEN ANTIEMETIC 1X PER MAR; PT REPOSITIONED Q2H; FAMILY MEMBERS DENY ADDITIONAL CONCERNS AT THIS TIME
--- NOTE | 2021-02-21 06:02 | NUR ---
SHIFT SUMMARY PT COMFORT CARE STATUS, SLEEPING MAJORITY OF SHIFT. A&O X4. PT DENYING PAIN/DISCOMFORT UNTIL C/O HEADACHE THIS AM. PT MEDICATED W/ PRN PO TYLENOL PER EMAR/PT REQUEST X1 THIS SHIFT. PT THEN SLEEPING AGAIN W/ NO OTHER COMPLAINTS. PT REFUSING MOST POSITION CHANGES THIS SHIFT. PT TO DC HOME W/ HOSPICE TODAY.
[2021-02-21] MEDS ORDERED: ACET325 PO (10:30)
--- NOTE | 2021-02-21 10:31 | NUR ---
COMFORT CARE VISIT MADE - Pt appears much more comfortable and less anxious than when I saw her yesterday with bipap on. She is using oximizer and 16L by [place] at this time. Family made aware that 10L is max to deliver on home O2. She is happy to be going home with anticipated transport at 11 am. Spoke with RN re: two questions daughter had that were answered. Time spent listening to pt/family in life review/reminiscing. We talked about her beautiful view at home. [facility] manager combination in direct contact with family, making arrangements. Quintin to go home to receive equipment. Pt and family expressed thanks for care received here and palliative care assist.
[2021-02-21] MEDS ORDERED: ATROPINE S0.4 MG/1 M SL (10:42)
[2021-02-21] MEDS ORDERED: Tessalon200 MG PO (10:43)
[2021-02-21] MEDS ORDERED: DIPHEN12.5 MG/7 PO (10:44)
[2021-02-21] MEDS ORDERED: FENTANYL1 EAC7 TOP (10:45)
[2021-02-21] MEDS ORDERED: Ativan1 MG PO (10:46)
[2021-02-21] MEDS ORDERED: MORP20L SL (10:47)
[2021-02-21] MEDS ORDERED: ONDA4ODT MM (10:47)
[2021-02-21] MEDS ORDERED: TRANSDERM-SCOP1 EAC1 TD (10:48)
--- NOTE | 2021-02-21 18:20 | NUR ---
Spiritual care note: I met with spouse, Nic, outside of room. He was tearful and quite open about his grief with the loss of his amazing of 41 years. He responded well to gentle bereavement counselor/art therapist and education. This family is loving and supportive. All agree to this plan. Prayer provided for a peaceful transition. Pt and fmaily express gratitude for compassinate care by [facility] staff. Pt d/c shortly after this visit.
== END 2021-02-21 11:15 | disposition hospice, home (50) | DRG 840 ==
LOC: ER 08:59 → ICUW 14:45 → SURS 02-16 15:29 → ICUW 02-17 10:04 → PCU 02-19 17:00
PROVIDERS: Emergency Medicine; Internal Medicine; Internal Medicine Hematology & Oncology; Nurse Practitioner Acute Care; Pharmacist; ADMIT Family Medicine
PROC: 30233N1 Transfusion of Nonautologous Red Blood Cells into Peripheral Vein, Percutaneous Approach (ICD-10-PCS; 2021-02-14)
PROC: 02HV33Z Insertion of Infusion Device into Superior Vena Cava, Percutaneous Approach (ICD-10-PCS; 2021-02-17)
PROC: 5A09357 Assistance with Respiratory Ventilation, Less than 24 Consecutive Hours, Continuous Positive Airway Pressure (ICD-10-PCS; principal; 2021-02-20)
DX: C91.10 Chronic lymphocytic leukemia of B-cell type not having achieved remission (principal); J18.9 Pneumonia, unspecified organism; G92 Toxic encephalopathy; R57.9 Shock, unspecified; I48.92 Unspecified atrial flutter; E87.1 Hypo-osmolality and hyponatremia; Z51.5 Encounter for palliative care; Z66 Do not resuscitate; D70.9 Neutropenia, unspecified; Z20.822 Contact with and (suspected) exposure to COVID-19; E87.6 Hypokalemia; E03.9 Hypothyroidism, unspecified; I48.0 Paroxysmal atrial fibrillation; J01.40 Acute pansinusitis, unspecified; E78.5 Hyperlipidemia, unspecified; R50.81 Fever presenting with conditions classified elsewhere; Z88.2 Allergy status to sulfonamides; Z88.8 Allergy status to other drugs, medicaments and biological substances; Z79.899 Other long term (current) drug therapy; Z90.49 Acquired absence of other specified parts of digestive tract; Z90.89 Acquired absence of other organs; Z98.890 Other specified postprocedural states; Z90.711 Acquired absence of uterus with remaining cervical stump
CPT/HCPCS: 36415; 36430; 36569; 51702; 70450; 71045; 71260; 74177; 80053; 80202; 81001; 82784; 83605; 83615; 83735; 84100; 84145; 84550; 85014; 85018; 85025; 85027; 85610; 85651; 86140; 86850; 86900; 86901; 86922; 87040; 87086; 87449; 93005; 93010; 94660; 94667; 94760; 94762; 96361-59; 96365-59; 99285-25; A9270; C1751; J0456; J1100; J1568; J1940; J2185; J2405; J2783; J3010; J3370; J7030; J7050; J7060; P9016; P9035; P9046; P9612; Q5115; Q9967; U0004